=== PATIENT | male | born 1980 | race Caucasian/White ===

== ENCOUNTER 2019-02-22 18:44 | Emergency (ER) | payer BC, OTHER ==
--- NOTE | 2019-02-22 19:57 | EDM.PDOC ---
<Sonido Perez - Last Filed: 02/22/19 20:04> ED HPI GENERAL MEDICAL PROBLEM - General Chief Complaint: Lower Extremity Injury/Pain Stated Complaint: INFECTION ON FOOT Time Seen by Provider: 02/22/19 18:55 - History of Present Illness INITIAL COMMENTS - FREE TEXT/NARRATIVE: HISTORY AND PHYSICAL: History of present illness: Ced is a 38 year old male who presents to the emergency department this evening for the evaluation of open area to his left foot and concerns for athletes foot. The patient first noticed an area raised area of induration to his left dorsal foot approximately 7 days ago. Three days ago the raised area opened and the patient has had purulent drainage and a localized area of redness to the surrounding tissue. Additionally the patient states he developed athletes foot approximately 9-10 days ago. For treatment, the patient has been spraying antiseptic spry to the open area of his dorsal left foot. For athletes foot, the patient has been cleansing the spacing between his toes with 70% hydrogen peroxide and using a OTC the counter drying powder- he is unsure of the name of the medication. He denies any symptoms of fever, chills or night sweats. Review of systems: As per history of present illness and below otherwise all systems reviewed and negative. Past medical history: As per history of present illness and as reviewed below otherwise noncontributory. Surgical history: As per history of present illness and as reviewed below otherwise noncontributory. Social history: No reported history of drug or alcohol abuse. Family history: As per history of present illness and as reviewed below otherwise noncontributory. Physical exam: Constitutional: Well developed, well nourshired, non toxic appearing. HEENT: Atraumatic, normocephalic, pupils reactive, negative for conjunctival pallor or scleral icterus, mucous membranes moist, throat clear, neck supple, nontender, trachea midline. Lungs: Clear to auscultation, breath sounds equal bilaterally, chest nontender. Heart: S1S2, regular, negative for clicks, rubs, or JVD. Abdomen: Soft, nondistended, nontender. Negative for masses or hepatosplenomegaly. Negative for costovertebral tenderness. Pelvis: Stable nontender. Genitourinary: Deferred. Rectal: Deferred. Extremities: Full range of motion and sensation to extremities. Neuro: Awake, alert, oriented. Cranial nerves II through XII unremarkable. Cerebellum unremarkable. Motor and sensory unremarkable throughout. Exam nonfocal. Skin: 2 cm horizontal open area to the dorsal aspect of the left foot- it is free from drainage the surrounding tissue has a small area of localized erythema. Bilateral lower digits 3, 4 5, with erythema & scaling of the webspaces of the toes. Small ulcerations between the webspace between digits 4 & 5 of the toes. Diagnostics: None Therapeutics: Impression: Furuncle Tinea Pedis Plan: The patient will be sent home with a prescription for Bactrim and for naftifine topical cream 2%. He has been instructed to try to keep his feet clean and dry. He was supplied gauze to place in between his webspacing of his toes after he applies the topical medication. Definitive disposition and diagnosis as appropriate pending reevaluation and review of above. feet Pain Score (Numeric/FACES): 8 - Related Data Allergies Allergy/AdvReac Type Severity Reaction Status Date / Time No Known Allergies Allergy Verified 02/22/19 18:53 Home Meds: Home Meds . [No Known Home Meds] 02/22/19 [History] Past Medical History - Past Surgical History GI Surgical History: Reports: Hernia, Inguinal Social & Family History - Family History Family Medical History: Noncontributory - Tobacco Use Smoking Status *Q: Current Every Day Smoker Years of Tobacco use: 8 Packs/Tins Daily: 1 - Recreational Drug Use Recreational Drug Use: No Course - Vital Signs Last Recorded V/S: Last Vital Signs Temp 37.1 C 02/22/19 18:55 Pulse 102 H 02/22/19 18:55 Resp 16 02/22/19 18:55 BP 140/94 H 02/22/19 18:55 Pulse Ox 96 02/22/19 18:55 Departure - Departure Disposition: Home, Self-Care 01 Clinical Impression: Furuncle Tinea pedis Qualifiers: Laterality: bilateral Qualified Code(s): B35.3 - Tinea pedis - Discharge Information Referrals: PCP,None [Primary Care Provider] - Forms: ED Department Discharge Additional Instructions: The following information is given to patients seen in the emergency department who are being discharged to home. This information is to outline your options for follow-up care. We provide all patients seen in our emergency department with a follow-up referral. The need for follow-up, as well as the timing and circumstances, are variable depending upon the specifics of your emergency department visit. If you don't have a primary care physician on staff, we will provide you with a referral. We always advise you to contact your personal physician following an emergency department visit to inform them of the circumstance of the visit and for follow-up with them and/or the need for any referrals to a consulting specialist. The emergency department will also refer you to a specialist when appropriate. This referral assures that you have the opportunity for follow-up care with a specialist. All of these measure are taken in an effort to provide you with optimal care, which includes your follow-up. Under all circumstances we always encourage you to contact your private physician who remains a resource for coordinating your care. When calling for follow-up care, please make the office aware that this follow-up is from your recent emergency room visit. If for any reason you are refused follow-up, please contact the [facility] Emergency Department at and asked to speak to the emergency department charge nurse. [facility] [address] [place] [address] [place] [address] 1. Take medication as prescribed. You can alternate ibuprofen and Tylenol as directed for pain and discomfort. 2. Follow-up with your primary care provider as discussed. Return to the ED as needed and as discussed. <Blanco,Amy - Last Filed: 02/22/19 20:11> ED HPI GENERAL MEDICAL PROBLEM - General Source of Information: Reports: Patient History Limitations: Reports: No Limitations - History of Present Illness INITIAL COMMENTS - FREE TEXT/NARRATIVE: I have physically seen the patient and agree with the above note as I am the supervising provider for this patient. Add to the below: HPI: Patient complains of an area of portal to the left top of his foot x 7 days. He has popped a boil twice and states that the area is improving. Physical Exam: There is a 2 cm for an furuncle on the patient's dorsum of left foot which appears priorly drained with small circular area of erythema approximately 3cm. Notes: Discussed proper measures for foot care for tinea pedis. Discussed the importance of follow-up with primary care provider. Voices understanding and is agreeable to plan of care. Denies any further questions or concerns at this time. Prescription: Bactrim DS, Naftifine cream Impression: Furuncle, left foot Tinea Pedis, bilateral Plan: 1. Take medication as prescribed. You can alternate ibuprofen and Tylenol as directed for pain and discomfort. 2. Follow-up with your primary care provider as discussed. Return to the ED as needed and as discussed. Definitive disposition and diagnosis as appropriate pending reevaluation and review of above. Review of Systems - Review of Systems Review Of Systems: ROS reveals no pertinent complaints other than HPI. ED EXAM, GENERAL - Physical Exam Exam: See Below (See dictation) Departure - Departure Time of Disposition: 20:04
== END 2019-02-22 20:18 | disposition home or self-care (01) ==
LOC: MW.ED 18:44
DX: L02.426 Furuncle of left lower limb (principal); B35.3 Tinea pedis; F17.210 Nicotine dependence, cigarettes, uncomplicated
CPT/HCPCS: 99282; 99283